=== PATIENT | male | born 1965 | race Caucasian/White ===

== ENCOUNTER 2016-12-10 01:19 | Emergency (ER) | payer BC, OTHER ==
--- NOTE | 2016-12-10 01:32 | Emergency Department Record ---
History of Present Illness - General Chief Complaint: Abdominal Pain Stated Complaint: ABDOMINAL PAIN Time Seen by Provider: 12/10/16 01:28 Source: Patient Mode of Arrival: Ambulatory Limitations: No limitations - History of Present Illness Initial Comments: 51 yo male presents with abdominal pain. He started with nausea, vomiting and diarrhea 1.5 days ago. He reports he and a friend had been catfish fishing and both developed similar symptoms at that time. No fevers. No blood in the vomit or diarrhea. Both the diarrhea and the vomiting have greatly decreased but the mid abdominal pain has persisted. He is on a ZPack for bronchitis but his GI symptoms preceded the antibiotic. He was seen at [facility] for this. MD Complaint: Abdominal pain -: Days(s) (1.5) Location: Periumbilical Radiation: None Migration to: No migration Severity: Moderate Quality: Aching Consistency: Constant Improves With: Nothing Worsens With: Eating Associated Symptoms: Anorexia, Diarrhea (resolving), Nausea, Vomiting - Related Data Home Medications Medication Instructions Recorded Confirmed Last Taken Baclofen 20 mg PO TID PRN 12/10/16 12/10/16 Unknown Bupropion HCl [Bupropion HCl Sr] 200 mg PO DAILY 12/10/16 12/10/16 Unknown Clotrimazole/Betamethasone Dip 1 applic TP BID 12/10/16 12/10/16 Unknown [Clotrimazole-Betamethasone Crm] Gabapentin [Neurontin] 400 mg PO TID 12/10/16 12/10/16 Unknown Hydrochlorothiazide 25 mg PO DAILY 12/10/16 12/10/16 Unknown Lamotrigine [Lamictal] 150 mg PO BID 12/10/16 12/10/16 Unknown Lorazepam [Ativan] 0.5 mg PO BID PRN 12/10/16 12/10/16 Unknown Morphine Sulfate [Morphine Sulfate 60 mg PO DAILY 12/10/16 12/10/16 Unknown ER] Omeprazole 20 mg PO DAILY 12/10/16 12/10/16 Unknown Trazodone HCl 200 mg PO QHS 12/10/16 12/10/16 Unknown Allergies Allergy/AdvReac Type Severity Reaction Status Date / Time No Known Drug Allergies Allergy Verified 12/10/16 01:23 Review of Systems Constitutional: Denies: Chills, Fever, Malaise, Weakness Eyes: Denies: Eye discharge, Eye pain, Photophobia, Vision change ENT: Denies: Congestion, Ear pain, Throat pain Respiratory: Reports: Cough. Denies: Dyspnea, Hemoptysis, Stridor, Wheezes Cardiovascular: Denies: Chest pain, Palpitations, Syncope Endocrine: Denies: Fatigue, Polydipsia, Polyuria Gastrointestinal: Reports: Abdominal pain, Diarrhea, Nausea, Vomiting Genitourinary: Denies: Dysuria, Frequency, Hematuria Musculoskeletal: Denies: Arthralgia, Back pain, Myalgia Skin: Denies: Bruising, Rash Neurological: Denies: Headache, Numbness, Tremors, Weakness Psychiatric: Denies: Anxiety Hematological/Lymphatic: Denies: Blood Clots, Easy bleeding, Easy bruising, Swollen glands Physical Exam - General General Appearance: Alert, Oriented x3, Cooperative, No acute distress Limitations: No limitations - Head Head exam: Normal inspection - Eye Eye exam: Normal appearance, PERRL. negative: Conjunctival injection, Periorbital swelling - ENT ENT exam: Normal exam, Mucous membranes moist Ear exam: Normal external inspection Nasal Exam: Normal inspection Mouth exam: Normal external inspection Teeth exam: Normal inspection - Neck Neck exam: Normal inspection, Full ROM. negative: Tenderness - Respiratory Respiratory exam: Normal lung sounds bilaterally. negative: Respiratory distress - Cardiovascular Cardiovascular Exam: Regular rate, Normal rhythm, Normal heart sounds - GI/Abdominal GI/Abdominal exam: Soft, Tenderness (No rebound or guarding but he is tender mid abdomen, no mass or hernia palpable). negative: Distended, Guarding, Hernia , Rebound - Rectal Rectal exam: Deferred - exam: Deferred - Extremities Extremities exam: Normal inspection, Full ROM, Normal capillary refill. negative: Tenderness - Back Back exam: Reports: Normal inspection, Full ROM. Denies: Muscle spasm, Rash noted, Tenderness - Neurological Neurological exam: Alert, Normal gait, Oriented X3 - Psychiatric Psychiatric exam: Normal affect, Normal mood - Skin Skin exam: Dry, Intact, Normal color, Warm Course Vital Signs 12/10/16 01:25 Temperature 98.3 F Pulse Rate [ 90 Pulse Ox Probe] Respiratory 16 Rate Blood Pressure 146/82 [Left Arm] Pulse Ox 97 - Reevaluation(s) Reevaluation #1: Vitals reviewed. 12/10/16 01:29 12/10/16 02:12 No acute changes on the CBC. Reevaluation #2: The CT scan of the abdomen is negative for acute process The patient is doing well without significant pain, nausea, or any vomiting or diarrhea DC home with recommendation for return or close follow up 12/10/16 04:35 Medical Decision Making - Lab Data Result diagrams: 12/10/16 01:40 12/10/16 01:40 Disposition Disposition: Discharge Clinical Impression: Vomiting and diarrhea Abdominal pain Qualifiers: Abdominal location: periumbilical Qualified Code(s): R10.33 - Periumbilical pain Disposition: Home, Self-Care Condition: (1) Good Instructions: Abdominal Pain (ED) Additional Instructions: Return if the pain returns, vomiting, fever, or any new concerns Call your doctor for close follow up regarding this ER visit and to review the results Forms: Patient Portal Access Time of Disposition: 04:36 Quality - Quality Measures Quality Measures: N/A - Blood Pressure Screening Blood Pressure Classification: Normal BP Reading Systolic Measurement: 117 Diastolic Measurement: 67 Screening for High Blood Pressure: < Normal BP, F/U Not Required > [G8783] Normal BP Follow-up Interventions: No follow-up required
[2016-12-10] MEDS ORDERED: ONDANSETRON HCL IV 4 MG/2 ML VIAL IV ONE (01:44)
[2016-12-10] MEDS ORDERED: 0.9 % SODIUM CHLORIDE 1,000 ML BAG IV ONE (01:44)
[2016-12-10 01:55] LABS: BASO % 0.3 % (0-6); EOS % 0.3 % (0-6); HEMATOCRIT 42.2 % (42.0-52.0); HEMOGLOBIN 14.5 gm/dl (14.0-18.0); LYMPH % 5.9 % (16-45); MEAN CELL VOLUME 89.2 fl (81-97); MEAN CORPUSCULAR HEMOGLOBIN 30.7 pg (27-33); MEAN CORPUSCULAR HGB CONC 34.4 g/dl (32-36); MEAN PLATELET VOLUME 9.4 fl (7.4-10.4); MONO % 6.7 % (0-9); PLATELET COUNT 281 K/uL (130-400); RED BLOOD COUNT 4.73 M/uL (4.40-5.70); RED CELL DISTRIBUTION WIDTH 13.2 % (11.5-14.5); WHITE BLOOD COUNT W/O DIFF 10.9 K/uL (4.2-12.2)
[2016-12-10 02:12] LABS: ALBUMIN 4.5 gm/dL (3.5-5.0); ALKALINE PHOSPHATASE 85 U/L (38-126); ALT/SGPT 54 U/L (21-72); ANION GAP 12.8 (7-16); AST/SGOT 30 U/L (17-59); BLOOD UREA NITROGEN 13 mg/dL (9-20); CARBON DIOXIDE 29.2 mmol/L (22-30); CREATININE 0.8 mg/dL (0.66-1.25); EST GLOMERULAR FILTRATION RATE > 60 ml/min; GLUCOSE,RANDOM 154 mg/dL (70-110); LIPASE 42 U/L (23-300)
[2016-12-10] MEDS ORDERED: PROMETHAZINE HCL 25 MG/ML VIAL IVP ONE (02:34)
--- NOTE | 2016-12-10 08:56 | CT SCAN REPORT ---
EXAM: CT OF THE ABDOMEN AND PELVIS HISTORY: ABDOMINAL PAIN. TECHNIQUE: CT of the abdomen and pelvis was performed following IV administration of 100 ml of Omnipaque 300 contrast. Oral contrast was also administered. Comparison: None. FINDINGS: Limited evaluation of the lung bases is unremarkable. The osseous structures are grossly intact. The liver, spleen, adrenal glands, pancreas, and kidneys are unremarkable. The gallbladder is present. No evidence for bowel obstruction. No free air or free fluid. Occasional sigmoid diverticula without CT evidence for diverticulitis. Subjective urinary bladder wall thickening may relate to incomplete distention. The appendix is not well seen. No pericecal inflammation. Intramuscular lipoma incidentally noted in the left gluteal region measuring 8.2 x 4.4 cm. Fat containing umbilical hernia also noted. IMPRESSION: 1. OCCASIONAL SIGMOID DIVERTICULA. NO CT EVIDENCE FOR DIVERTICULITIS. 2. SUBJECTIVE WALL THICKENING OF THE URINARY BLADDER MAY RELATE TO INCOMPLETE DISTENTION. CORRELATE WITH URINALYSIS. 3. INTRAMUSCULAR LIPOMA IN THE LEFT GLUTEAL REGION. JOB NUMBER: [id number] MTDD
== END 2016-12-10 04:45 | disposition home or self-care (01) ==
LOC: ER 01:19
DX: R10.33 Periumbilical pain (principal); R11.2 Nausea with vomiting, unspecified; R19.7 Diarrhea, unspecified
CPT/HCPCS: 99284 ×2; 96374; 96375; 96361; 83690; 80076; 80048; 85027; 74177; Q9967; J2405; J2550; J7030

== ENCOUNTER 2016-12-15 23:39 | Emergency (ER) | payer BC ==
[2016-12-16 00:23] LABS: HEMATOCRIT 38.8 % (42.0-52.0); HEMOGLOBIN 13.4 gm/dl (14.0-18.0); MEAN CORPUSCULAR HEMOGLOBIN 30.7 pg (27-33); MEAN CORPUSCULAR HGB CONC 34.5 g/dl (32-36); MEAN PLATELET VOLUME 8.8 fl (7.4-10.4); PLATELET COUNT 272 K/uL (130-400); RED BLOOD COUNT 4.36 M/uL (4.40-5.70); RED CELL DISTRIBUTION WIDTH 13.3 % (11.5-14.5); WHITE BLOOD COUNT W/O DIFF 9.3 K/uL (4.2-12.2)
[2016-12-16 00:35] LABS: ALB/GLOB RATIO 1.4 (1.1-1.8); ALKALINE PHOSPHATASE 73 U/L (38-126); ALT/SGPT 46 U/L (21-72); ANION GAP 10.8 (7-16); AST/SGOT 26 U/L (17-59); BILIRUBIN,TOTAL 0.69 mg/dL (0.2-1.3); BLOOD UREA NITROGEN 10 mg/dL (9-20); CARBON DIOXIDE 30.2 mmol/L (22-30); CREATININE 0.8 mg/dL (0.66-1.25); EST GLOMERULAR FILTRATION RATE > 60 ml/min; GLUCOSE,RANDOM 118 mg/dL (70-110); TOTAL PROTEIN 6.8 gm/dL (6.3-8.2)
--- NOTE | 2016-12-16 01:30 | Emergency Department Record ---
History of Present Illness - General Chief Complaint: Dizziness Stated Complaint: DIZZY Time Seen by Provider: 12/15/16 23:46 Source: Patient Mode of Arrival: Ambulatory Limitations: No limitations - History of Present Illness Initial Comments: pt has had a cough for 10 days. today he started coughing up blood. he has had a zpack. he became lightheaded and dizzy. Onset/Timin -: Days(s) Timing: Gradual onset Description: Lightheadedness History of Same: No History of Trauma: No Severity: Mild Improves With: Nothing Worsens With: Nothing Associated Symptoms: Denies other symptoms - [place] Coma Scale Eye Response: (4) Open spontaneously Motor Response: (6) Obeys commands Verbal Response: (5) Oriented Gene Total: 15 - Related Data Home Medications Medication Instructions Recorded Confirmed Last Taken Baclofen 20 mg PO TID PRN 12/10/16 12/15/16 Unknown Bupropion HCl [Bupropion HCl Sr] 200 mg PO DAILY 12/10/16 12/15/16 Unknown Clotrimazole/Betamethasone Dip 1 applic TP BID 12/10/16 12/15/16 Unknown [Clotrimazole-Betamethasone Crm] Gabapentin [Neurontin] 400 mg PO TID 12/10/16 12/15/16 Unknown Hydrochlorothiazide 25 mg PO DAILY 12/10/16 12/15/16 Unknown Lamotrigine [Lamictal] 150 mg PO BID 12/10/16 12/15/16 Unknown Lorazepam [Ativan] 0.5 mg PO BID PRN 12/10/16 12/15/16 Unknown Morphine Sulfate [Morphine Sulfate 60 mg PO DAILY 12/10/16 12/15/16 Unknown ER] Omeprazole 20 mg PO DAILY 12/10/16 12/15/16 Unknown Trazodone HCl 200 mg PO QHS 12/10/16 12/15/16 Unknown Previous Rx's Medication Instructions Recorded Benzonatate [Tessalon] 1 cap PO Q8H PRN #14 cap 12/16/16 Allergies Allergy/AdvReac Type Severity Reaction Status Date / Time No Known Drug Allergies Allergy Verified 12/10/16 01:23 Travel Screening - Travel/Exposure Within Last 30 Days Have you traveled within the last 30 days?: No - Travel/Exposure Within Last Year Have you traveled outside the [place] in the last year?: No - Additonal Travel Details Have you been exposed to anyone with a communicable illness?: No - Travel Symptoms Symptom Screening: None Review of Systems Reviewed: No additional complaints except as noted below Constitutional: Reports: As per HPI. Denies: Chills, Fever, Malaise, Night sweats, Weakness, Weight change Eyes: Reports: As per HPI. Denies: Eye discharge, Eye pain, Photophobia, Vision change ENT: Reports: As per HPI. Denies: Congestion, Dental pain, Ear pain, Epistaxis , Hearing loss, Throat pain Respiratory: Reports: As per HPI. Denies: Cough, Dyspnea, Hemoptysis, Stridor, Wheezes Cardiovascular: Reports: As per HPI. Denies: Arrhythmia, Chest pain, Dyspnea on exertion, Edema, Murmurs, Orthopnea, Palpitations, Paroxysmal nocturnal dyspnea, Rheumatic Fever, Syncope Endocrine: Reports: As per HPI. Denies: Fatigue, Heat or cold intolerance, Polydipsia, Polyuria Gastrointestinal: Reports: As per HPI. Denies: Abdominal pain, Constipation, Diarrhea, Hematemesis, Hematochezia, Melena, Nausea, Vomiting Genitourinary: Reports: As per HPI. Denies: Dysuria, Frequency, Hematuria, Incontinence, Retention, Testicular pain, Testicular mass, Urgency Musculoskeletal: Reports: As per HPI. Denies: Arthralgia, Back pain, Gout, Joint swelling, Myalgia, Neck pain Skin: Reports: As per HPI. Denies: Bruising, Change in color, Change in hair/ nails, Lesions, Pruritus, Rash Neurological: Reports: As per HPI. Denies: Abnormal gait, Confusion, Headache, Numbness, Paresthesias, Seizure, Tingling, Tremors, Vertigo, Weakness Psychiatric: Reports: As per HPI. Denies: Anxiety, Auditory hallucinations, Depression, Homicidal thoughts, Suicidal thoughts, Visual hallucinations Hematological/Lymphatic: Reports: As per HPI. Denies: Anemia, Blood Clots, Easy bleeding, Easy bruising, Swollen glands Past Medical History - SOCIAL HISTORY Smoking Status: Current every day smoker Alcohol Use: None Drug Use: None - RESPIRATORY Hx Respiratory Disorders: Yes Hx Bronchitis: Yes Hx Sleep Apnea: Yes Hx of CPAP: No Comment:: insomnia - CARDIOVASCULAR Hx Cardio Disorders: Yes Hx Edema: Yes Hx Hypertension: Yes - NEURO Hx Neuro Disorders: No - GI Hx GI Disorders: Yes Hx Diverticulitis: Yes Hx Reflux: Yes (better since procedure) Hx of Polyps: Yes (removed) - Hx Genitourinary Disorders: No - ENDOCRINE Hx Endocrine Disorders: No - MUSCULOSKELETAL Hx Musculoskeletal Disorders: Yes Comment:: Seborrheic dermatitis - PSYCH Hx Psych Problems: Yes Hx Anxiety: Yes Hx Depression: Yes Comment:: Bipolar - HEMATOLOGY/ONCOLOGY Hx Hematology/Oncology Disorders: No Family Medical History Any Significant Family History?: Yes Hx HTN: Mother Hx Stroke: Father Physical Exam - General General Appearance: Alert, Oriented x3, Cooperative, Mild distress - Head Head exam: Normal inspection - Eye Eye exam: Normal appearance, PERRL, EOMI Pupils: Normal accommodation - ENT ENT exam: Normal exam, Mucous membranes moist, Normal external ear exam, Normal orophraynx Ear exam: Normal external inspection. negative: External canal tenderness Nasal Exam: Normal inspection. negative: Discharge, Sinus tenderness Mouth exam: Normal external inspection, Tongue normal Teeth exam: Normal inspection. negative: Dental caries Throat exam: Normal inspection. negative: Tonsillar erythema, Tonsillar exudate - Neck Neck exam: Normal inspection, Full ROM. negative: Tenderness - Respiratory Respiratory exam: Normal lung sounds bilaterally. negative: Respiratory distress - Cardiovascular Cardiovascular Exam: Regular rate, Normal rhythm, Normal heart sounds - GI/Abdominal GI/Abdominal exam: Soft, Normal bowel sounds. negative: Tenderness - Rectal Rectal exam: Deferred - exam: Deferred - Extremities Extremities exam: Normal inspection, Full ROM, Normal capillary refill. negative: Tenderness - Back Back exam: Reports: Normal inspection, Full ROM. Denies: Muscle spasm, Rash noted, Tenderness - Neurological Neurological exam: Alert, Normal gait, Oriented X3, Reflexes normal - Psychiatric Psychiatric exam: Normal affect, Normal mood - Skin Skin exam: Dry, Intact, Normal color, Warm Course Vital Signs 12/15/16 23:41 Temperature 98.6 F Pulse Rate 91 H Respiratory 20 Rate Blood Pressure 136/74 Pulse Ox 97 - Reevaluation(s) Reevaluation #1: 12/16/16 02:14 ct had poor perfusion due to delayed taking taking of ct. radiologist called re this. pt had dense material in stomach and i told pt i needed to do a rectal to r/o gastric bleeding. pt refused. attempting to get previous ct report. Reevaluation #2: 12/16/16 02:21 pt has no cp and no sob Medical Decision Making - Lab Data Result diagrams: 12/16/16 00:18 12/16/16 00:18 Lab Results 12/16/16 12/16/16 12/16/16 Range/Units 00:18 00:18 00:18 WBC 9.3 (4.2-12.2) K/uL RBC 4.36 L (4.40-5.70) M/uL Hgb 13.4 L (14.0-18.0) gm/dl Hct 38.8 L (42.0-52.0) % MCV 89.0 (81-97) fl MCH 30.7 (27-33) pg MCHC 34.5 (32-36) g/dl RDW 13.3 (11.5-14.5) % Plt Count 272 (130-400) K/uL MPV 8.8 (7.4-10.4) fl Neutrophils % 70.0 (47-80) % Band Neutrophils % 0.0 (0-5) % Eosinophils % Not Reportable Basophils % Not Reportable Lymphocytes 18.0 (16-45) % Monocytes 10.0 H (0-9) % Basophils 0.0 (0-6) % Eosinophil Count 2.0 (0-6) % D-Dimer 0.97 H (0-0.59) mg/L FEU Sodium 141 (136-145) mmol/L Potassium 3.5 (3.5-5.1) mmol/L Chloride 100 (98-107) mmol/L Carbon Dioxide 30.2 H (22-30) mmol/L Anion Gap 10.8 (7-16) BUN 10 (9-20) mg/dL Creatinine 0.8 (0.66-1.25) mg/dL Estimated GFR > 60 ml/min Random Glucose 118 H (70-110) mg/dL Calcium 8.5 (8.5-10.1) mg/dL Total Bilirubin 0.69 (0.2-1.3) mg/dL AST 26 (17-59) U/L ALT 46 (21-72) U/L Alkaline Phosphatase 73 (38-126) U/L Total Protein 6.8 (6.3-8.2) gm/dL Albumin 4.0 (3.5-5.0) gm/dL Globulin 2.8 (1.4-4.8) gm/dL Albumin/Globulin Ratio 1.4 (1.1-1.8) Disposition Disposition: Discharge Clinical Impression: Hemoptysis Disposition: Home, Self-Care Condition: (1) Good Instructions: Dizziness (ED), Hemoptysis (ED) Additional Instructions: follow up with family doctor today. return sooner if worse. have endoscopy and bronchoscopy if symptoms continue. Prescriptions: Benzonatate [Tessalon] 1 cap PO Q8H PRN #14 cap PRN Reason: Cough Forms: Patient Portal Access Quality - Quality Measures Quality Measures: N/A - Blood Pressure Screening Blood Pressure Classification: Pre-Hypertensive BP Reading Systolic Measurement: 136 Diastolic Measurement: 74 Screening for High Blood Pressure: < Normal BP, F/U Not Required > [G8783] Normal BP Follow-up Interventions: No follow-up required
--- NOTE | 2016-12-16 12:42 | CT ANGIOGRAM REPORT ---
EXAM: CTA OF THE CHEST HISTORY: DIZZINESS AND COUGHING. TECHNIQUE: CTA of the chest was performed using pulmonary embolus protocol following the IV administration of 100 ml of Omnipaque 350 contrast. Axial images were obtained with coronal and sagittal MIP reconstructions. Comparison: None. FINDINGS: Suboptimal contrast bolus, however, no evidence for large or central PE. Assessment of the distal arterial tree is nondiagnostic. There is also no significant contrast within the thoracic aorta. No convincing evidence for thoracic aortic aneurysm or dissection. Nonenlarged mediastinal nodes are present. No mediastinal or hilar adenopathy. Coronary artery calcification. The heart and pericardium are otherwise unremarkable. Limited evaluation of the upper abdomen is unremarkable. The osseous structures are grossly intact. No pneumothorax. The visualized airways are patent. Calcified granuloma in the right lung base. IMPRESSION: 1. SUBOPTIMAL CONTRAST BOLUS. NO LARGE OR CENTRAL PE. 2. CALCIFIED GRANULOMA RIGHT LUNG BASE. JOB NUMBER: [id number] MTDD
== END 2016-12-16 02:37 | disposition home or self-care (01) ==
LOC: ER 23:39
DX: R04.2 Hemoptysis (principal); R42 Dizziness and giddiness; I10 Essential (primary) hypertension; F17.210 Nicotine dependence, cigarettes, uncomplicated
CPT/HCPCS: 99283; 99284; 80053; 85379; 85027; 71275; Q9967

== ENCOUNTER 2018-10-25 04:09 | Emergency (ER) | payer BC ==
[2018-10-25 04:51] LABS: BASO % 0.8 % (0-6); GRAN % 64.2 % (47-80); HEMATOCRIT 42.2 % (42.0-52.0); HEMOGLOBIN 14.4 gm/dl (14.0-18.0); LYMPH % 18.9 % (16-45); MEAN CELL VOLUME 88.8 fl (81-97); MEAN CORPUSCULAR HEMOGLOBIN 30.3 pg (27-33); MEAN CORPUSCULAR HGB CONC 34.1 g/dl (32-36); MONO % 13.1 % (0-9); PLATELET COUNT 281 K/uL (130-400); RED BLOOD COUNT 4.75 M/uL (4.40-5.70)
--- NOTE | 2018-10-25 04:53 | Emergency Department Record ---
History of Present Illness - General Chief complaint: Dental Stated complaint: DENTAL PAIN Time Seen by Provider: 10/25/18 04:25 Source: Patient Mode of Arrival: Ambulatory Limitations: No limitations - History of Present Illness Initial comments: pt had a tooth pulled 2 days ago. now he has difficulty swallowing MD complaint: Difficulty swallowing, Sore throat Onset/Timin -: Days(s) Severity: Mild Quality: Aching Consistency: Constant Improves with: None Worsens with: None Context-Epistaxis: Recent surgery/procedure Context- Dental: Other Associated Symptoms: Other - Related Data Home Medications Medication Instructions Recorded Confirmed Last Taken Clindamycin HCl [Cleocin HCl] 300 mg PO TID 10/25/18 10/25/18 Unknown Allergies Allergy/AdvReac Type Severity Reaction Status Date / Time No Known Drug Allergies Allergy Verified 12/10/16 01:23 Travel Screening - Travel/Exposure Within Last 30 Days Have you traveled within the last 30 days?: No Review of Systems Reviewed: No additional complaints except as noted below Constitutional: Reports: As per HPI. Denies: Chills, Fever, Malaise, Night sweats, Weakness, Weight change Eyes: Reports: As per HPI. Denies: Eye discharge, Eye pain, Photophobia, Vision change ENT: Reports: As per HPI. Denies: Congestion, Dental pain, Ear pain, Epistaxis, Hearing loss, Throat pain Respiratory: Reports: As per HPI. Denies: Cough, Dyspnea, Hemoptysis, Stridor, Wheezes Cardiovascular: Reports: As per HPI. Denies: Arrhythmia, Chest pain, Dyspnea on exertion, Edema, Murmurs, Orthopnea, Palpitations, Paroxysmal nocturnal dyspnea, Rheumatic Fever, Syncope Endocrine: Reports: As per HPI. Denies: Fatigue, Heat or cold intolerance, Polydipsia, Polyuria Gastrointestinal: Reports: As per HPI. Denies: Abdominal pain, Constipation, Diarrhea, Hematemesis, Hematochezia, Melena, Nausea, Vomiting Genitourinary: Reports: As per HPI. Denies: Dysuria, Frequency, Hematuria, Incontinence, Retention, Testicular pain, Testicular mass, Urgency Musculoskeletal: Reports: As per HPI. Denies: Arthralgia, Back pain, Gout, Joint swelling, Myalgia, Neck pain Skin: Reports: As per HPI. Denies: Bruising, Change in color, Change in hair/nails, Lesions, Pruritus, Rash Neurological: Reports: As per HPI. Denies: Abnormal gait, Confusion, Headache, Numbness, Paresthesias, Seizure, Tingling, Tremors, Vertigo, Weakness Psychiatric: Reports: As per HPI. Denies: Anxiety, Auditory hallucinations, Depression, Homicidal thoughts, Suicidal thoughts, Visual hallucinations Hematological/Lymphatic: Reports: As per HPI. Denies: Anemia, Blood Clots, Easy bleeding, Easy bruising, Swollen glands Past Medical History - SOCIAL HISTORY Smoking Status: Current every day smoker Alcohol Use: None Drug Use: None - RESPIRATORY Hx Respiratory Disorders: Yes Hx Bronchitis: Yes Hx Sleep Apnea: Yes Hx of CPAP: No Comment:: insomnia - CARDIOVASCULAR Hx Cardio Disorders: Yes Hx Edema: Yes Hx Hypertension: Yes - NEURO Hx Neuro Disorders: No - GI Hx GI Disorders: Yes Hx Diverticulitis: Yes Hx Reflux: Yes (better since procedure) Hx of Polyps: Yes (removed) - Hx Genitourinary Disorders: No - ENDOCRINE Hx Endocrine Disorders: No - MUSCULOSKELETAL Hx Musculoskeletal Disorders: Yes Comment:: Seborrheic dermatitis - PSYCH Hx Psych Problems: Yes Hx Anxiety: Yes Hx Depression: Yes Comment:: Bipolar - HEMATOLOGY/ONCOLOGY Hx Hematology/Oncology Disorders: No Family Medical History Any Significant Family History?: No Hx HTN: Mother Hx Stroke: Father Physical Exam - General General Appearance: Alert, Oriented x3, Cooperative, Mild distress - Head Head exam: Normal inspection - Eye Eye exam: Normal appearance, PERRL, EOMI Pupils: Normal accommodation - ENT ENT exam: Normal exam, Mucous membranes moist, Normal external ear exam, Normal orophraynx Ear exam: Normal external inspection. negative: External canal tenderness Nasal Exam: Normal inspection. negative: Discharge, Sinus tenderness Mouth exam: Normal external inspection, Tongue normal Teeth exam: Other. negative: Dental caries Throat exam: Normal inspection. negative: Tonsillar erythema, Tonsillar exudate - Neck Neck exam: Normal inspection, Full ROM, Lymphadenopathy, Tenderness - Respiratory Respiratory exam: Normal lung sounds bilaterally. negative: Respiratory distress - Cardiovascular Cardiovascular Exam: Regular rate, Normal rhythm, Normal heart sounds - GI/Abdominal GI/Abdominal exam: Soft, Normal bowel sounds. negative: Tenderness - Rectal Rectal exam: Deferred - exam: Deferred - Extremities Extremities exam: Normal inspection, Full ROM, Normal capillary refill. negative: Tenderness - Back Back exam: Reports: Normal inspection, Full ROM. Denies: Muscle spasm, Rash noted, Tenderness - Neurological Neurological exam: Alert, CN II-XII intact, Normal gait, Oriented X3 - Psychiatric Psychiatric exam: Normal affect, Normal mood - Skin Skin exam: Dry, Intact, Normal color, Warm Course Vital Signs 10/25/18 04:15 Temperature 98.6 F Pulse Rate [ 99 H Pulse Ox Probe] Respiratory 20 Rate Blood Pressure 143/84 [Left Arm] Pulse Ox 95 - Reevaluation(s) Reevaluation #1: 10/25/18 06:23 ct shows lympadanopathy Medical Decision Making - Lab Data Result diagrams: 10/25/18 04:43 10/25/18 04:43 Disposition Disposition: Discharge Clinical Impression: Lymphadenopathy Disposition: Home, Self-Care Condition: (1) Good Instructions: Lymphadenopathy (ED) Additional Instructions: follow up with dentist. return sooner if worse. continue current antibiotics. sleep elevated Forms: Patient Portal Access Quality - Quality Measures Quality Measures: N/A - Blood Pressure Screening Does Patient Have Any of the Following: No Blood Pressure Classification: Pre-Hypertensive BP Reading Systolic Measurement: 143 Diastolic Measurement: 84 Screening for High Blood Pressure: < Pre-Hypertensive BP, F/U Documented > [G8950] Pre-Hypertensive Follow-up Interventions: Follow-up with rescreen every year.
[2018-10-25 05:03] LABS: BLOOD UREA NITROGEN 14 mg/dL (6-20); CREATININE 0.9 mg/dL (0.7-1.2); EST GLOMERULAR FILTRATION RATE > 60 mL/min
[2018-10-25 05:06] LABS: GLUCOSE,RANDOM 105 mg/dL (74-109)
--- NOTE | 2018-10-26 13:45 | CT SCAN REPORT ---
EXAM: CT OF THE SOFT TISSUES OF THE NECK WITH CONTRAST HISTORY: DIFFICULTY SWALLOWING FOLLOWING LOWER TOOTH EXTRACTION ONE DAY AGO. TECHNIQUE: Contrast enhanced helical CT examination of the neck soft tissues was performed with 95 ml of Omnipaque 300 utilized. FINDINGS: Evaluation of the oral cavity and oropharynx is limited by beam hardening artifact from dental restorations. There is absence of the left posterior mandibular premolar consistent with stated history of teeth extraction. There is mild adjacent soft tissue swelling along the periphery of the mandibular body. No mucosal pharyngeal space abnormality is seen. The airway is grossly patent though the soft palate is posteriorly positioned facing the junction of the oropharynx and nasopharynx. No suspicious cervical mass. There is a mildly enlarged left submandibular lymph node without associated necrosis. This is nonspecific though likely reactive. Nonenlarged lymph nodes are scattered throughout the remainder of the neck bilaterally primarily in the suprahyoid regions, likely reactive. The fat/fascial planes are intact. There is minor mucosal thickening involving the floor of the left maxillary sinus. There is mild mucosal thickening within the right sphenoid sinus. No lytic or blastic bone lesion. Degenerative changes are scattered throughout the cervical spine. Changes at the C4-C5 level cause central canal stenosis. There is borderline central canal stenosis at the C3-C4 level. Multilevel bilateral neural foraminal narrowing is present due to uncovertebral joint and facet joint spurring. IMPRESSION: 1. FINDINGS CONSISTENT WITH RECENT EXTRACTION OF A LEFT MANDIBULAR PREMOLAR WITH ASSOCIATED SOFT TISSUE SWELLING. NO EVIDENCE OF ABSCESS NOR WELL FORMED HEMATOMA. 2. MILDLY ENLARGED LEFT SUBMANDIBULAR LYMPH NODE. THIS IS NONSPECIFIC, BUT LIKELY REACTIVE. CLINICAL FOLLOW-UP IS RECOMMENDED. 3. DEGENERATIVE CHANGES SCATTERED THROUGHOUT THE CERVICAL SPINE. JOB NUMBER: [id number] [facility]
== END 2018-10-25 06:33 | disposition home or self-care (01) ==
LOC: ER 04:09
DX: R59.0 Localized enlarged lymph nodes (principal); R13.10 Dysphagia, unspecified; J02.9 Acute pharyngitis, unspecified; I10 Essential (primary) hypertension; K08.409 Partial loss of teeth, unspecified cause, unspecified class; F17.210 Nicotine dependence, cigarettes, uncomplicated
CPT/HCPCS: 70491; 80048; 85025; 99283; 99284